=== PATIENT | female | born 1930 | race African-American/Black ===

== ENCOUNTER 2019-09-14 08:45 | Outpatient (CLI) | payer OTHER | END 2019-09-14 08:50 | disposition home or self-care (01) | LOC: RAD 08:45 | DX: R07.89 Other chest pain (principal) ==

== ENCOUNTER → 2020-10-15 | Outpatient (CLI) | payer OTHER | END | disposition home or self-care (01) | LOC: RAD 10:19 | PROVIDERS: ATTEND Specialist | DX: I51.7 Cardiomegaly (principal) ==

== ENCOUNTER 2021-07-14 21:19 | Emergency (ER) | payer OTHER ==
[~2021-07-14] VITALS: Ht 165.1 cm; Wt 77.1 kg
[2021-07-14] MEDS ORDERED: LIPITOR40 M1 PO (21:36)
[2021-07-14] MEDS ORDERED: NORVASC2.5 M1 PO (21:36)
[2021-07-14] MEDS ORDERED: SYNTHROID50 MCG PO (21:36)
[2021-07-14] MEDS ORDERED: ATACAND16 MG PO (21:36)
[2021-07-14] MEDS ORDERED: CARVEDILOL ER40 MG PO (21:37)
== END 2021-07-14 22:45 | disposition home or self-care (01) ==
LOC: ER 21:19
DX: S00.83XA Contusion of other part of head, initial encounter (principal); W18.09XA Striking against other object with subsequent fall, initial encounter; Y93.89 Activity, other specified; Y92.018 Other place in single-family (private) house as the place of occurrence of the external cause; Y99.8 Other external cause status

== ENCOUNTER 2022-01-04 10:32 | Outpatient (CLI) | payer OTHER ==
[~2022-01-04 10:32] MED LIST: ATACAND16 MG PO; CARVEDILOL ER40 MG PO; LIPITOR40 M1 PO; NORVASC2.5 M1 PO; SYNTHROID50 MCG PO
== END 2022-01-04 10:46 | disposition home or self-care (01) ==
LOC: TOM 10:32
DX: R29.6 Repeated falls (principal); S09.90XA Unspecified injury of head, initial encounter